=== PATIENT | male | born 1980 | race Hispanic/Latino ===

== ENCOUNTER 2017-07-17 09:13 | Emergency (ER) | payer SELFPAY ==
[2017-07-17] MEDS ORDERED: NA CHLORIDE 0.9% 1,000 ML ONE (10:07)
[2017-07-17] MEDS ORDERED: MORPHINE 4 MG/ML SYR ONE (10:07)
[2017-07-17] MEDS ORDERED: ONDANSETRON 4 MG/2 ML VIAL ONE (10:07)
[2017-07-17 10:20] LABS: Absolute Lymphocytes (CBC) 0.9 K/uL (0.7-4.9); Absolute Monocytes 0.3 K/uL (0.1-1.3); Absolute Neutrophil 6.2 K/uL (1.8-8.0); Basophils % 0.3 % (0-1.3); Eosinophils % 0.1 % (0-4.4); Hematocrit 44.5 % (39.6-49.0); Lymphocytes % 12.3 % (15.3-44.8); MCH 31.6 pg (27.0-35.0); MCV 93.3 fL (80-100); MPV 8.1 fL (7.6-11.3); Monocytes % 3.6 % (3.3-12.3); RBC Red Blood Cell Count 4.77 M/uL (4.33-5.43)
[2017-07-17 10:31] LABS: Bicarbonate 24 mEq/L (21-31); Glucose Level 202 mg/dL (65-120); Lipase 18 U/L (22-51); Potassium 3.8 mEq/L (3.6-5.0); Sodium Level 137 mEq/L (135-145)
[2017-07-17 10:37] LABS: ALT/SGPT 19 IU/L (10-60); AST/SGOT 26 IU/L (10-42); Albumin 4.7 g/dL (3.2-5.5); Alkaline Phosphatase 69 IU/L (42-121); Amylase Level 74 U/L (28-100); BUN Blood Urea Nitrogen 14 mg/dL (6-20); Bilirubin Direct 0.2 mg/dL (0-0.2); Bilirubin Total 1.4 mg/dL (0.3-1.2); Protein, Total 7.4 g/dL (6.0-8.3)
[2017-07-17] MEDS ORDERED: KETOROLAC 30 MG/ML INJ ONE (10:51)
[2017-07-17] MEDS ORDERED: TAMSULOSIN 0.4 MG SR CAP ONE (10:51)
--- NOTE | 2017-07-17 10:51 | RAD REPORT ---
EXAM DESCRIPTION: CT - Stone Protocol - 07/17/2017 10:31 am CLINICAL HISTORY: Abdominal pain. Right flank pain COMPARISON: May 2017 TECHNIQUE: Computed axial tomography of the abdomen pelvis was obtained without oral or IV contrast. Lack of IV and oral contrast limits evaluation of solid organs, bowel, and vessels. Coronal reformat oni images were obtained and reviewed. All CT scans are performed using dose optimization technique as appropriate and may include automated exposure control or mA/KV adjustment according to patient size. FINDINGS: Punctate renal calculi are present. Mild to moderate right hydronephrosis is present. The right ureter is dilated. Within the distal right ureter near the ureteral pelvic junction is a 6 mill imeter calculus Hounsfield unit 1122. The liver, spleen, pancreas and adrenals appear grossly normal There is no evidence of diverticulitis. The appendix appears normal The rectal wall appears mildly thickened IMPRESSION: A 6 millimeter calculus within the distal right ureter resulting in mild to moderate rig ht hydronephrosis Mild rectal wall thickening may simply be secondary to incomplete distention. Pathology such as a mas s or inflammation can also result in this appearance.
[2017-07-17] MEDS ORDERED: Magnesium Sulfate 2gm IVPB 2 G/50 ML BAG IV ONE (10:53)
[2017-07-17 12:07] LABS: Urine Blood TRACE (NEG); Urine Glucose 2+ (NEG); Urine Protein 1+ (NEG); Urine Specific Gravity 1.025 (1.005-1.030); Urine pH 8.5 (5.0-7.0)
[2017-07-17 12:09] LABS: Urine Amorphous Sediment 3+ /HPF (NONE SEEN); Urine Bacteria NONE SEEN /HPF (NONE SEEN); Urine Culture Reflex Order NOT NEEDED
--- NOTE | 2017-07-17 12:26 | ER ---
Nurse's Notes [facility] Name: Live Max Age: 36 yrs Sex: Male : 1980 Arrival Date: 07/17/2017 Time: 09:15 Bed 26 Private MD: Tal Greenwood Diagnosis: Calculus of kidney and ureter Presentation: 07/17 09:28 Presenting complaint: Patient states: hx of kidney stones; i started having R lower hj back pain yesterday, pressure in my testicles; reports nausea and vomiting;l denies fever and chills;. Transition of care: patient was not received from another setting of care. Onset of symptoms was July 17, 2017. Initial Sepsis Screen: Does the patient meet any 2 criteria? No. Patient's initial sepsis screen is negative. Does the patient have a suspected source of infection? No. Patient's initial sepsis screen is negative. Care prior to arrival: None. 09:28 Method Of Arrival: Ambulatory 09:28 Acuity: JOHN 3 hj Triage Assessment: 09:30 General: Appears in no apparent distress. uncomfortable, Behavior is calm, cooperative, hj appropriate for age. Pain: Complains of pain in right low back. Historical: - Allergies: 09:30 No Known Allergies; hj - Home Meds: 09:30 Humalog 100 unit/mL Sub-Q crtg 20 unit before meals [Active]; Toujeo SoloStar 300 hj unit/mL (1.5 mL) subcutaneous inpn [Active]; - PMHx: 09:30 Diabetes Type 1; Kidney stones; hj - PSHx: 09:30 foot surg; hj - Immunization history:: Adult Immunizations up to date. - Social history:: Smoking status: Patient/guardian denies using tobacco. Screenin:02 Abuse screen: Denies threats or abuse. Nutritional screening: No deficits noted. la1 Tuberculosis screening: No symptoms or risk factors identified. Fall Risk None identified. Assessment: 10:02 General: Appears uncomfortable, well developed, Behavior is calm, cooperative. Pain: la1 Complains of pain in anterior aspect of right lateral abdomen and posterior aspect of right lateral abdomen Pain currently is 8 out of 10 on a pain scale. Neuro: Level of Consciousness is awake, alert, obeys commands, Oriented to person, place, time, situation. Cardiovascular: Capillary refill < 3 seconds Patient's skin is warm and dry. Respiratory: Airway is patent Respiratory effort is even, unlabored. GI: Reports nausea, vomiting, Patient currently denies diarrhea. : No signs and/or symptoms were reported regarding the genitourinary system. 11:15 Reassessment: Patient appears in no apparent distress at this time. No changes from la1 previously documented assessment. Patient and/or family updated on plan of care and expected duration. Pain level reassessed. 12:15 Reassessment: Patient appears in no apparent distress at this time. No changes from la1 previously documented assessment. Patient and/or family updated on plan of care and expected duration. Pain level reassessed. Patient is alert, oriented x 3, equal unlabored respirations, skin warm/dry/pink. Patient states feeling better. Patient states symptoms have improved. Vital Signs: 09:30 BP 124 / 73; Pulse 106; Resp 18; Temp 98.2(TE); Pulse Ox 100% on R/A; Weight 68.04 kg; hj Height 5 ft. 3 in. (160.02 cm); Pain 8/10; 11:51 BP 122 / 64; Pulse 89; Resp 16; Pulse Ox 100% on R/A; la1 09:30 Body Mass Index 26.57 (68.04 kg, 160.02 cm) ED Course: 09:15 Patient arrived in ED. rg4 09:15 Tal Greenwood MD is Private Physician. rg4 09:29 Triage completed. hj 09:30 Arm band placed on left wrist. hj 09:52 Fabian Lancaster PA is PHCP. cp 09:52 Boris Garay MD is Attending Physician. cp 10:01 Lenard Redmond RN is Primary Nurse. la1 10:02 Call light in reach. la1 10:03 Inserted saline lock: 22 gauge in left forearm, using aseptic technique. Blood la1 collected. 10:31 CT Stone Protocol In Process Unspecified. EDMS 12:25 Kristine Rosen MD is Referral Physician. cp 12:34 No provider procedures requiring assistance completed. IV discontinued, intact, la1 bleeding controlled, No redness/swelling at site. Pressure dressing applied. Administered Medications: 10:12 Drug: NS 0.9% 1000 ml Route: IV; Rate: 1 bolus; Site: left forearm; la1 10:42 Follow up: IV Status: Completed infusion la1 11:51 Follow up: IV Status: Completed infusion la1 10:12 Drug: Zofran 4 mg Route: IVP; Site: left forearm; la1 10:42 Follow up: Response: No adverse reaction; Nausea is decreased la1 10:12 Drug: morphine 4 mg Route: IVP; Site: left forearm; la1 10:42 Follow up: Response: No adverse reaction; Pain is decreased la1 10:56 Drug: Magnesium Sulfate 2 grams Route: IVPB; Infused Over: 2 hrs; Site: left forearm; la1 11:50 Follow up: IV Status: Completed infusion la1 10:56 Drug: TORadol 30 mg Route: IVP; Site: left forearm; la1 11:50 Follow up: Response: No adverse reaction; Pain is decreased la1 10:56 Drug: Flomax 0.4 mg Route: PO; la1 11:50 Follow up: Response: No adverse reaction la1 Outcome: 12:26 Discharge ordered by . dena 12:34 Discharged to home ambulatory. la1 12:34 Condition: stable 12:34 Discharge instructions given to patient, Instructed on discharge instructions, follow up and referral plans. medication usage, Demonstrated understanding of instructions, follow-up care, medications, Prescriptions given X 4. 12:34 Patient left the ED. la1 Signatures: Dispatcher [employer] EDMS Lenard Redmond RN RN la1 Aditya Jolley RN RN Fabian Griffin PA PA cp Garcia, Rubi rg4
--- NOTE | 2017-07-17 12:27 | EDPHYS ---
Physician Documentation [facility] Name: Live Max Age: 36 yrs Sex: Male : 1980 Arrival Date: 07/17/2017 Time: 09:15 Bed 26 Private MD: Tal Greenwood ED Physician Boris Garay HPI: 07/17 10:10 This 36 yrs old Male presents to ER via Ambulatory with complaints of Low Back cp Pain. 10:10 The patient complains of pain in the right mid back and right low back. cp 10:10 The pain radiates to the abdomen and right testicle. Onset: The symptoms/episode cp began/occurred yesterday. Associated signs and symptoms: Pertinent positives: nausea, vomiting, Pertinent negatives: diarrhea, fever. Severity of pain: in the emergency department the pain is actually worse moderately. The patient has experienced similar episodes in the past, today's symptoms are similar, to when the patient was apparently diagnosed with kidney stone. Historical: - Allergies: 09:30 No Known Allergies; hj - Home Meds: 09:30 Humalog 100 unit/mL Sub-Q crtg 20 unit before meals [Active]; Toujeo SoloStar 300 hj unit/mL (1.5 mL) subcutaneous inpn [Active]; - PMHx: 09:30 Diabetes Type 1; Kidney stones; hj - PSHx: 09:30 foot surg; hj - Immunization history:: Adult Immunizations up to date. - Social history:: Smoking status: Patient/guardian denies using tobacco. ROS: 10:15 Constitutional: Negative for body aches, chills, fever, poor PO intake. cp 10:15 Eyes: Negative for injury, pain, redness, and discharge. cp 10:15 Neck: Negative for pain with movement, pain at rest, stiffness. 10:15 Cardiovascular: Negative for chest pain. 10:15 Respiratory: Negative for cough, shortness of breath, wheezing. 10:15 Abdomen/GI: Positive for abdominal pain, nausea, vomiting, Negative for diarrhea, constipation, black/tarry stool, rectal bleeding. 10:15 : Positive for testicular pain 10:15 Skin: Negative for cellulitis, rash. 10:15 Neuro: Negative for altered mental status, dizziness, headache, weakness. 10:15 All other systems are negative. Exam: 10:22 Constitutional: The patient appears in no acute distress, alert, awake, cp non-diaphoretic, non-toxic, well developed, well nourished. 10:22 Head/Face: Normocephalic, atraumatic. Eyes: Pupils equal round and reactive to light, cp extra-ocular motions intact. Lids and lashes normal. Conjunctiva and sclera are non-icteric and not injected. Cornea within normal limits. Periorbital areas with no swelling, redness, or edema. ENT: Nares patent. No nasal discharge, no septal abnormalities noted. Tympanic membranes are normal and external auditory canals are clear. Oropharynx with no redness, swelling, or masses, exudates, or evidence of obstruction, uvula midline. Mucous membranes moist. Neck: Trachea midline, no thyromegaly or masses palpated, and no cervical lymphadenopathy. Supple, full range of motion without nuchal rigidity, or vertebral point tenderness. No Meningismus. Chest/axilla: Normal chest wall appearance and motion. Nontender with no deformity. No lesions are appreciated. 10:22 Cardiovascular: Rate: tachycardic, Rhythm: regular. 10:22 Respiratory: the patient does not display signs of respiratory distress, Respirations: normal, no use of accessory muscles, no retractions, no splinting, no tachypnea, labored breathing, is not present, Breath sounds: are clear throughout, no decreased breath sounds, no stridor, no wheezing. 10:22 Abdomen/GI: Inspection: abdomen appears normal, Bowel sounds: active, all quadrants, Palpation: soft, in all quadrants, moderate abdominal tenderness, in the right upper quadrant and right lower quadrant, rebound tenderness, is not appreciated, voluntary guarding, is not appreciated, involuntary guarding, is not appreciated. 10:22 Back: pain, that is moderate, of the right mid back and right low back. 10:22 Skin: cellulitis, is not appreciated, no rash present. 10:22 Neuro: Orientation: to person, place \T\ time. Mentation: lucid, able to follow commands, Cerebellar function: is grossly normal, Motor: moves all fours, strength is normal, Sensation: no obvious gross deficits, Gait: is steady. Vital Signs: 09:30 BP 124 / 73; Pulse 106; Resp 18; Temp 98.2(TE); Pulse Ox 100% on R/A; Weight 68.04 kg; hj Height 5 ft. 3 in. (160.02 cm); Pain 8/10; 11:51 BP 122 / 64; Pulse 89; Resp 16; Pulse Ox 100% on R/A; la1 09:30 Body Mass Index 26.57 (68.04 kg, 160.02 cm) hj MDM: 09:52 Patient medically screened. cp 10:00 Differential diagnosis: nephrolithiasis, pyelonephritis, UTI, testicular torsion, cp diverticulitis, pancreatitis, ruptured AAA, dissecting AAA. 12:25 Data reviewed: vital signs, nurses notes, lab test result(s), radiologic studies, CT cp scan. 12:25 Response to treatment: the patient's symptoms have markedly improved after treatment, cp and as a result, I will discharge patient. 07/17 10:04 Order name: Amylase, Serum; Complete Time: 10:46 cp 07/17 10:04 Order name: Basic Metabolic Panel; Complete Time: 10:46 cp 07/17 11:37 Interpretation: Normal except: GLUC 202. cp 07/17 10:04 Order name: CBC with Diff; Complete Time: 10:46 cp 07/17 11:38 Interpretation: Normal except: KERRI% 83.7; LYM% 12.3. cp 07/17 10:04 Order name: Creatinine for Radiology; Complete Time: 10:46 cp 07/17 10:04 Order name: Hepatic Function; Complete Time: 10:46 cp 07/17 11:38 Interpretation: Normal except: BILIT 1.4. cp 07/17 10:04 Order name: Lipase; Complete Time: 10:46 cp 07/17 10:04 Order name: Urine Microscopic Only; Complete Time: 12:24 cp 0507 12:24 Interpretation: Normal except: URBC 5-10; AMORPH 3+. cp 07/17 10:04 Order name: CT Stone Protocol; Complete Time: 11:37 cp 07/17 12:25 Interpretation: Report reviewed. cp 07/17 11:59 Order name: Urine Dipstick--Ancillary (enter results); Complete Time: 12:24 bd 07/17 12:24 Interpretation: Normal except: UKET 4+; UBLD TRACE; UPH 8.5; UPROT 1+. cp 07/17 10:04 Order name: IV Saline Lock; Complete Time: 10:12 cp 05/07 10:04 Order name: Labs collected and sent; Complete Time: 10:12 cp 07/17 10:04 Order name: Urine Dipstick-Ancillary (obtain specimen); Complete Time: 11:57 cp 07/17 12:25 Order name: PO challenge; Complete Time: 12:26 cp Administered Medications: 10:12 Drug: NS 0.9% 1000 ml Route: IV; Rate: 1 bolus; Site: left forearm; la1 10:42 Follow up: IV Status: Completed infusion la1 11:51 Follow up: IV Status: Completed infusion la1 10:12 Drug: Zofran 4 mg Route: IVP; Site: left forearm; la1 10:42 Follow up: Response: No adverse reaction; Nausea is decreased la1 10:12 Drug: morphine 4 mg Route: IVP; Site: left forearm; la1 10:42 Follow up: Response: No adverse reaction; Pain is decreased la1 10:56 Drug: Magnesium Sulfate 2 grams Route: IVPB; Infused Over: 2 hrs; Site: left forearm; la1 11:50 Follow up: IV Status: Completed infusion la1 10:56 Drug: TORadol 30 mg Route: IVP; Site: left forearm; la1 11:50 Follow up: Response: No adverse reaction; Pain is decreased la1 10:56 Drug: Flomax 0.4 mg Route: PO; la1 11:50 Follow up: Response: No adverse reaction la1 Disposition: 07/17/17 12:26 Discharged to Home. Impression: Calculus of kidney and ureter. - Condition is Stable. - Discharge Instructions: Kidney Stones. - Prescriptions for Tylenol- Codeine #3 300-30 mg Oral Tablet - take 2 tablets by ORAL route every 6 hours As needed; 20 tablet. Zofran 4 mg Oral Tablet - take 1 tablet by ORAL route every 12 hours As needed; 20 tablet. Flomax 0.4 mg Oral Capsule, Sust. Release 24 hr - take 1 capsule by ORAL route once daily As needed 1/2 hour following the same meal each day; 5 capsule. Cipro 500 mg Oral Tablet - take 1 tablet by ORAL route every 12 hours for 7 days; 14 tablet. - Medication Reconciliation Form, Thank You Letter, Antibiotic Education, Prescription Opioid Use form. - Follow up: Kristine Rosen MD; When: 2 - 3 days; Reason: if symptoms continue. - Problem is new. - Symptoms have improved. Addendum: 07/19/2017 20:15 Co-signature as Attending Physician, Boris Garay MD. r n Signatures: Dispatcher [employer] EDMS Boris Garay MD MD rn Attema, Lee, RN RN la1 Aditya Jolley RN RN Fabian Griffin, PATRIA PA cp Corrections: (The following items were deleted from the chart) 07/17 12:34 12:26 07/17/2017 12:26 Discharged to Home. Impression: Calculus of kidney and ureter. la1 Condition is Stable. Forms are Medication Reconciliation Form, Thank You Letter, Antibiotic Education, Prescription Opioid Use. Follow up: Kristine Rosen; When: 2 - 3 days; Reason: if symptoms continue. Problem is new. Symptoms have improved. cp
[2017-07-17 12:49] VITALS: TEMP 98.2; O2SAT 100
[2017-07-17 12:50] VITALS: BP 122/64
== END 2017-07-17 12:34 | disposition home or self-care (01) ==
LOC: ER 09:13
DX: N20.2 Calculus of kidney with calculus of ureter (principal); E10.9 Type 1 diabetes mellitus without complications; Z79.4 Long term (current) use of insulin
CPT/HCPCS: 36415; 74176; 76377; 80048; 80076; 81003; 81015; 82150; 83690; 85025; 96361; 96365; 96375; 99284; J2405; J3475; J7030